=== PATIENT | female | born 1945 ===

== ENCOUNTER 2016-07-12 07:47 | Inpatient (IN) | payer OTHER ==
[~2016-07-12 07:47] MED LIST: ACETAMINOPHEN 325 MG TAB PO ONE; CEFAZOLIN 2 GM/DEXTR 100 ML IV ONE; CHLORHEXIDINE GLUC HIBICLENS 118 ML BTL TP ONE; DEXAMETHASONE 4 MG/ML VIAL IVP ONE; FAMOTIDINE 20 MG TAB PO ONE; ROPI/epiNEPH/KETOROLAC JOINT COCKTAIL IU ONE; SKIN ADHESIVE (DERMABOND) 1 EACH TP ONE; TRANEXAMIC ACID 3,000 MG in NS 50 ML IRR ONE; TRANEXAMIC ACID 3,000 MG/50 ML BAG IRR ONE
[2016-07-12] MEDS ORDERED: ACETAMINOPHEN 325 MG TAB ONE (08:21)
[2016-07-12] MEDS ORDERED: DEXAMETHASONE 4 MG/ML VIAL ONE (08:21)
[2016-07-12] MEDS ORDERED: FAMOTIDINE 20 MG TAB ONE (08:21)
[2016-07-12] MEDS ORDERED: LIDOCAINE 1% 5 ML SDV ONE (08:21)
[2016-07-12] MEDS ORDERED: LR 1,000 ML IV ONE (08:53)
[2016-07-12] MEDS ORDERED: LIDOCAINE 1% 5 ML SDV ID PRN (08:53)
[2016-07-12] MEDS ORDERED: MIDAZOLAM 2 MG/2 ML VIAL ONE (10:07)
[2016-07-12] MEDS ORDERED: PROPOFOL/EMULSION 500 MG/50 ML BOTTLE IV ONE (10:38)
[2016-07-12] MEDS ORDERED: TEMAZEPAM 15 MG CAP PO PRN (11:45)
[2016-07-12] MEDS ORDERED: ONDANSETRON DISINTEGRATING 4 MG TAB PO PRN (11:45)
[2016-07-12] MEDS ORDERED: BISACODYL 10 MG SUPP PR PRN (11:45)
[2016-07-12] MEDS ORDERED: ONDANSETRON 4 MG/2 ML VIAL IVP PRN (11:45)
[2016-07-12] MEDS ORDERED: POLYETHYLENE GLYCOL 3350 17 GM PKT PO PRN (11:45)
[2016-07-12] MEDS ORDERED: PHARMACY PAIN CONSULT 1 EA MISC PRN (11:45)
[2016-07-12] MEDS ORDERED: METOCLOPRAMIDE 10 MG/2 ML VIAL IVP PRN (11:45)
[2016-07-12] MEDS ORDERED: PROMETHAZINE HCL 25 MG SUPPR PR PRN (11:45)
[2016-07-12] MEDS ORDERED: LACTULOSE 20 GM/30 ML UDCUP PO PRN (11:45)
[2016-07-12] MEDS ORDERED: PROMETHAZINE HCL 25 MG/ML INJ IVP PRN (11:45)
[2016-07-12] MEDS ORDERED: DIPHENOXYLATE/ATROPINE LOMOTIL 1 TAB PO PRN (11:45)
[2016-07-12] MEDS ORDERED: diphenhydrAMINE 25 MG CAP PO PRN (11:45)
[2016-07-12] MEDS ORDERED: MAGNESIUM HYDROXIDE 30 ML UDCUP PO PRN (11:45)
--- NOTE | 2016-07-12 11:45 | POSTOPPROG ---
Post Op Note Date of Operation: 07/12/16 Surgeon: Michael Alcaraz Digital Asset Coordinator: gregg alcaraz Anesthesiologist: dr. zelaya Anesthesia: Spinal Pre-op Diagnosis: Right HIP OA Post-op Diagnosis: same Indication: right hip pain due to OA that failed conservative measures Procedure: R CHAMP ant approach Findings: severe hip OA Inf/Abcess present in the surg proc area at time of surgery?: No EBL: 100-500
[2016-07-12] MEDS ORDERED: LR 1,000 ML IV SCH (12:00)
[2016-07-12] MEDS: ACETAMINOPHEN 325 MG TAB PO SCH ×4 (12:42→23:38)
[2016-07-12] MEDS ORDERED: ceFAZolin 2 GM/DEXTROSE 100 ML IV SCH (14:00)
--- NOTE | 2016-07-12 15:02 | GOP ---
DATE OF OPERATION: 07/12/2016 SURGEON: Shree Barry MD FAST FOOD CREW LEAD: HERIBERTO Tripp. ANESTHESIA: Spinal. PREOPERATIVE DIAGNOSIS: Right hip osteoarthritis. POSTOPERATIVE DIAGNOSIS: Right hip osteoarthritis. PROCEDURE PERFORMED: Right total hip arthroplasty. FINDINGS: ESTIMATED BLOOD LOSS: 200 cc. IMPLANTS: Accolade II size 4 at 127. Acetabular component a 54 mm Tritanium. The liner is a Trident X3 36 mm. The head is a Biolox Delta 36 mm -2.5. INDICATIONS: The patient has progressively worsening arthritis of the hip which has failed medical management. The patient understands the treatment options including continued non-operative care and has selected surgical intervention. The patient has decided to undergo total hip arthroplasty via the direct anterior approach, understanding the risks of the procedure including , but not limited to, neurovascular injury, infection, persistent pain, component wear and loosening, deep venous thrombosis, pulmonary embolism, limb length inequality, hip instability (including dislocation), and intra-operative fractures. DESCRIPTION OF PROCEDURE: After proper identification of the patient including verification and marking the surgical site, the patient was brought to the operating room and placed in the supine position. All bony prominences were well padded. Anesthesia was induced without complication and intravenous prophylactic antibiotics were administered prior to skin incision. The operative leg was placed in the Trumpf Arch table extension and the well leg in a Yellofin leg rm. The patient was prepped and draped in the usual sterile fashion. The C-arm was draped for intra-operative fluoroscopy to check acetabular position, femoral component position including leg length and femoral offset. Attention was then drawn to surgical exposure of the hip. An incision was made with a #10 Bard Rodney blade starting 3 cm lateral and 3 cm distal to the anterior superior iliac spine measuring 8-10 cm and coursing distally toward the greater trochanter. The skin and subcutaneous tissues were divided sharply down to the fascia shavon. The fascia shavon was incised in line with the skin incision exposing the underlying tensor fascia shavon muscle. The muscle was bluntly elevated from the fascia and the first extracapsular Cobra retractor was placed laterally at the junction of the superior femoral neck and greater trochanter. The lateral femoral circumflex vessels were identified, cauterized , and divided with the AquamanCognios bipolar cautery. The deep investing fascia of the TFL was divided to allow proper mobilization of the muscle preventing damage during the retraction. The reflected head of the rectus femoris muscle was elevated off the anterior hip capsule and a medial Cobra retractor was placed just proximal to the lesser trochanter. The anterior capsulotomy was made sharply from the superolateral acetabulum to the saddle junction of the superior femoral neck and greater trochanter, then coursing inferomedial towards the lesser trochanter. The retractors were then placed in the intracapsular position for femoral neck osteotomy. Corresponding to pre-operative templating, the osteotomy was made with the oscillating saw carefully protecting the greater trochanter and soft tissues. The femoral head was removed from the acetabulum with a corkscrew and confirmed to be severely arthritic with exposed bone, deformity and osteophytes. Similar findings were confirmed in the acetabulum. The Arch table extension was then placed in 40 degrees external rotation. Attention was then drawn to the acetabular preparation. After placement of the anterior and posterior Cobra retractors outside the labrum and intracapsular, the circumferential labrum was removed sharply. The foveal contents were then removed and hemostasis obtained with cautery. The first reamer selected was sized using the removed femoral head. Reaming began with medialization and then commenced in 2 mm increments at 45 degrees of abduction and 15 degrees of anteversion using fluoroscopic navigation. Reaming ceased 1 mm less than the definitive acetabular component and corresponded to the pre-operative templating. The final acetabular component was inserted using fluoroscopy to achieve proper orientation yielding excellent purchase and stability in the acetabulum. The final acetabular liner was then placed and its seating confirmed. Attention was then turned to the femur. The Arch table extension was placed in extension and adduction, delivering the osteotomized femoral neck into the wound. A 2-pronged femoral elevator was placed at the calcar and another at the tip of the greater trochanter. The posterolateral capsule was released with cautery allowing mobilization of the femur lateral and anterior for preparation. The external rotators were visualized and preserved. A curette and rongeur were used to open the starting point for broaching. Serial broaching started with the #0 broach and ended with the broach that exhibited excellent fit in the proximal femur. A change in pitch during mallet strikes was accompanied by the inability to advance the broach any further. The trial reduction was performed and fluoroscopic navigation was utilized to check limb length. Adjustments were made to equalize limb length accordingly. After the final trials were accepted they were removed and the wound was copiously lavaged. The femoral component was seated to the same depth as the final broach and the femoral head was impacted onto the clean trunnion. The hip was then reduced for the final time and once more fluoroscopy was used to check that limb length equality was achieved. The wound was irrigated and closed in layers, the fascia shavon with 2-0 Quill, the subcutaneous tissue with 2-0 Quill, and the skin with Dermabond. Sterile dressings were applied. Final sharps and sponge counts were accurate. The patient was then transferred to a hospital bed and brought to the recovery room in stable condition. /[id number]/MODL MTDD
[2016-07-12] MEDS: ceFAZolin 2 GM in D5W 100 ML IV SCH ×2 (15:03→21:14)
[2016-07-12] MEDS: CYCLOBENZAPRINE 10 MG TAB PO PRN (15:07)
[2016-07-12] MEDS: oxyCODONE IR 5 MG TAB PO PRN ×3 (15:07→21:14)
[2016-07-12] MEDS: ASPIRIN 325 MG TAB PO SCH (19:46)
[2016-07-12] MEDS: SENNOSIDES/DOCUSATE SODIUM TAB PO SCH (19:47)
[2016-07-12] MEDS: FAMOTIDINE 20 MG TAB PO SCH (19:47)
[2016-07-13] MEDS: oxyCODONE IR 5 MG TAB PO PRN ×2 (04:12→08:27)
[2016-07-13] MEDS: ACETAMINOPHEN 325 MG TAB PO SCH (05:12)
[2016-07-13 05:33] LABS: HEMATOCRIT 33.5 % (38.0-47.0); HEMOGLOBIN 11.4 g/dL (12.6-16.3)
[2016-07-13 07:52] VITALS: BP 107/62; PULSE 65; RESP 14; TEMP 97.6; O2SAT 97
[2016-07-13] MEDS: ASPIRIN 325 MG TAB PO SCH (08:26)
[2016-07-13] MEDS: SENNOSIDES/DOCUSATE SODIUM TAB PO SCH (08:27)
[2016-07-13] MEDS: FAMOTIDINE 20 MG TAB PO SCH (08:27)
[2016-07-13] MEDS: CYCLOBENZAPRINE 10 MG TAB PO PRN (08:29)
== END 2016-07-13 10:58 | disposition home or self-care (01) | DRG 470 ==
LOC: F3N 07:47
PROVIDERS: ADMIT Orthopaedic Surgery; ATTEND Orthopaedic Surgery
PROC: 0SR904Z Replacement of Right Hip Joint with Ceramic on Polyethylene Synthetic Substitute, Open Approach (ICD-10-PCS; principal; 2016-07-12 10:15)
DX: M16.11 Unilateral primary osteoarthritis, right hip (principal)
CPT/HCPCS: 97110-GP; 97116-GP; 97161-GP; 97165-GO; 97530-GP; 97535-GO; G8978-GP-CJ; G8979-GP-CI; G8980-GP-CI; G8987-GO-CI; G8988-GO-CI; J0171; J0690; J1100; J1885; J2250; J2704; J2795

== ENCOUNTER 2017-10-31 07:38 | Inpatient (IN) | payer OTHER ==
[~2017-10-31 07:38] MED LIST changes: -ACETAMINOPHEN 325 MG TAB PO ONE; -CEFAZOLIN 2 GM/DEXTR 100 ML IV ONE; -CHLORHEXIDINE GLUC HIBICLENS 118 ML BTL TP ONE; -DEXAMETHASONE 4 MG/ML VIAL IVP ONE; -FAMOTIDINE 20 MG TAB PO ONE; -ROPI/epiNEPH/KETOROLAC JOINT COCKTAIL IU ONE; +ROPIVACAINE 0.2% 80 MG, EPINEPHrine 0.2 MG, KETOROLAC TROMETHAMINE 30 MG in SYRINGE 0 ML IU ONE; -SKIN ADHESIVE (DERMABOND) 1 EACH TP ONE; +TRANEXAMIC ACID 3,000 MG in NS (SYRINGE) 50 ML IRR ONE; -TRANEXAMIC ACID 3,000 MG in NS 50 ML IRR ONE
[2017-10-31] MEDS ORDERED: ACETAMINOPHEN 325 MG TAB PO ONE (08:03)
[2017-10-31] MEDS ORDERED: ceFAZolin 2 GM/DEXTROSE 100 ML IV ONE (08:03)
[2017-10-31] MEDS ORDERED: FAMOTIDINE 20 MG TAB PO ONE (08:03)
[2017-10-31] MEDS ORDERED: DEXAMETHASONE 4 MG/ML VIAL IVP ONE (08:03)
[2017-10-31] MEDS ORDERED: LR 1,000 ML IV ONE (08:06)
--- NOTE | 2017-10-31 08:08 | PDANEPAE ---
ANE History of Present Illness 72 year old female for left hip total arthroplasty. ANE Past Medical History - Cardiovascular History Hx Hypertension: No Hx Arrhythmias: No Hx Chest Pain: No Hx Coronary Artery / Peripheral Vascular Disease: No Hx CHF / Valvular Disease: No Hx Palpitations: No - Pulmonary History Hx COPD: No Hx Asthma/Reactive Airway Disease: No Hx Recent Upper Respiratory Infection: No Hx Oxygen in Use at Home: No Hx Sleep Apnea: No Sleep Apnea Screening Result - Last Documented: Negative - Neurologic History Hx Cerebrovascular Accident: No Hx Seizures: No Hx Dementia: No - Endocrine History Hx Diabetes: No Hypothyroid: No Hyperthyroid: No Obesity: no - Renal History Hx Renal Disorders: No - Liver History Hx Hepatic Disorders: No - Neurological & Psychiatric Hx Hx Neurological and Psychiatric Disorders: No - Cancer History Hx Cancer: No - Congenital Disorder History Hx Congenital Disorders: No - GI History Hx Gastrointestinal Disorders: No - Other Health History Other Health History: OSTEOARTHRITIS - Chronic Pain History Chronic Pain: Yes (LT HIP/LT KNEE) - Surgical History Prior Surgeries: RT TOTAL HIP 06/2016. LYUDMILA LASIK and radiokeratotomy. cone bx ANE Review of Systems Review of systems is: negative Review of Systems: - Exercise capacity Exercise capacity: >=4 METS METS (RN): 4 METS ANE Patient History - Allergies Allergies/Adverse Reactions: egg Allergy (Verified 07/13/16 07:21) oxycodone [From OxyContin] Allergy (Verified 10/11/17 18:43) HANGOVER/GI ISSUES peanut Allergy (Verified 07/13/16 07:20) - Home Medications Home medications: home medication list seen and reviewed Home Medications: Multivitamins [Multivitamin (*)] 1 each PO DAILY 09/21/17 [Last Taken Unknown] Vit C/Dl-E AC/Lut/Copper/Znox [Preservision Softgel] 1 each PO DAILY 09/21/17 [ Last Taken Unknown] - NPO status NPO Status: no food or drink >8 hours - Anes Hx Anes Hx: no prior problems - Smoking Hx Smoking Status: Never smoked Marijuana use: No - Alcohol Use Alcohol Use: Rarely - Family Anes Hx Family Anes Hx: neg - N/A ANE Labs/Vital Signs - Vital Signs Vital Signs: reviewed preoperatively; see RN documention for details Height: 167.64 cm Weight: 73.936 kg ANE Physical Exam - Airway Neck exam: FROM Mallampati Score: Class 2 Mouth exam: normal dental/mouth exam - Pulmonary Pulmonary: no respiratory distress - Cardiovascular Cardiovascular: regular rate and rhythym - ASA Status ASA Status: II ANE Anesthesia Plan Anesthesia Plan: GA w LMA (General anesthesia as "back-up plan" only.), MAC, spinal Total IV Anesthesia: No
[2017-10-31] MEDS ORDERED: MIDAZOLAM 2 MG/2 ML VIAL IVP ONE (10:08)
[2017-10-31] MEDS ORDERED: MIDAZOLAM 2 MG/2 ML VIAL ONE (10:09)
[2017-10-31] MEDS ORDERED: PROPOFOL/EMULSION 500 MG/50 ML BOTTLE IV ONE (10:17)
[2017-10-31] MEDS ORDERED: ONDANSETRON 4 MG/2 ML VIAL ONE (10:18)
[2017-10-31] MEDS ORDERED: DEXAMETHASONE 4 MG/ML VIAL ONE (10:18)
[2017-10-31] MEDS ORDERED: fentaNYL 100 MCG/2 ML INJ IVP PRN (11:01)
[2017-10-31] MEDS ORDERED: NALOXONE HCL 0.4 MG/ML INJ IVP PRN (11:01)
[2017-10-31] MEDS ORDERED: DIAZEPAM 5 MG/ML 1 ML SYR IVP PRN (11:01)
[2017-10-31] MEDS ORDERED: LR 500 ML IV PRN (11:01)
[2017-10-31] MEDS ORDERED: LABETALOL HCL 5 MG/ML 20 ML MDV IVP PRN (11:01)
[2017-10-31] MEDS ORDERED: HYDROmorphONE/DILAUDID 1 MG/ML INJ IVP PRN (11:01)
[2017-10-31] MEDS ORDERED: ONDANSETRON 4 MG/2 ML VIAL IVP PRN ×2 (11:01→11:44)
[2017-10-31] MEDS ORDERED: PHENYLEPHRINE HCL 100 MCG/ML SYR IVP PRN (11:01)
[2017-10-31] MEDS ORDERED: MAGNESIUM HYDROXIDE 30 ML UDCUP PO PRN (11:44)
[2017-10-31] MEDS ORDERED: LACTULOSE 20 GM/30 ML UDCUP PO PRN (11:44)
[2017-10-31] MEDS ORDERED: BISACODYL 10 MG SUPP PR PRN (11:44)
[2017-10-31] MEDS ORDERED: TEMAZEPAM 15 MG CAP PO PRN (11:44)
[2017-10-31] MEDS ORDERED: DIPHENOXYLATE/ATROPINE LOMOTIL 1 TAB PO PRN (11:44)
[2017-10-31] MEDS ORDERED: METOCLOPRAMIDE 10 MG/2 ML VIAL IVP PRN (11:44)
[2017-10-31] MEDS ORDERED: PROMETHAZINE HCL 25 MG/ML INJ IVP PRN (11:44)
[2017-10-31] MEDS ORDERED: diphenhydrAMINE 25 MG CAP PO PRN (11:44)
[2017-10-31] MEDS ORDERED: ONDANSETRON DISINTEGRATING 4 MG TAB PO PRN (11:44)
[2017-10-31] MEDS ORDERED: PROMETHAZINE HCL 25 MG SUPPR PR PRN (11:44)
[2017-10-31] MEDS ORDERED: CYCLOBENZAPRINE 10 MG TAB PO PRN (11:44)
[2017-10-31] MEDS ORDERED: POLYETHYLENE GLYCOL 3350 17 GM PKT PO PRN (11:44)
--- NOTE | 2017-10-31 11:44 | POSTOPPROG ---
Post Op Note Date of Operation: 10/31/17 Surgeon: Michael Alcaraz Cardroom Plastic Card Grader: gregg alcaraz Anesthesiologist: Dr. Fonseca Anesthesia: Spinal Pre-op Diagnosis: left hip OA Post-op Diagnosis: same Indication: left hip pain Procedure: L CHAMP ant approach Findings: severe hip OA Inf/Abcess present in the surg proc area at time of surgery?: No EBL: 100-500
[2017-10-31] MEDS ORDERED: LR 1,000 ML IV SCH (12:00)
[2017-10-31] MEDS: ACETAMINOPHEN 325 MG TAB PO SCH ×2 (13:06→18:03)
--- NOTE | 2017-10-31 14:17 | PDHPUP ---
History & Physical Update H&P update statement: This history and physical update is based on an assessment of the patient which was completed after admission or registration (within 24 hours), but prior to the surgery/procedure. H&P update: H&P reviewed & patient examined, no change in patient's condition since H&P completed
[2017-10-31] MEDS: traMADol 50 MG TAB PO PRN (16:40)
--- NOTE | 2017-10-31 16:53 | POSTANESTH ---
Post Anesthetic Evaluation Cardiovascular Status: Normal, Stable, Similar to Pre-Op Cond Respiratory Status: Normal, Stable, Similar to Pre-op Cond. Level of Consciousness/Mental Status: Can Participate in Eval, Alert and Oriented Pain Control: Adequate, Prn Tx Ordered Nausea/Vomiting Control: Adequate, Prn Tx Ordered Complications Possibly Related to Anesthesia: None Noted
[2017-10-31] MEDS: ceFAZolin 2 GM/DEXTROSE 100 ML IV SCH (18:04)
--- NOTE | 2017-10-31 20:39 | GOP ---
[f rep st] OPERATIVE REPORT DATE OF OPERATION: 10/31/2017 SURGEON: Shree Barry MD NEUROSURGEON: Shree Barry MD. SOLUTIONS DELIVERY CONSULTANT: HERIBERTO Tripp. ANESTHESIA: Spinal. PREOPERATIVE DIAGNOSIS: Left hip osteoarthritis. POSTOPERATIVE DIAGNOSIS: Left hip osteoarthritis. PROCEDURE PERFORMED: Left total hip arthroplasty with x-ray. FINDINGS: ESTIMATED BLOOD LOSS: 200 cc. INDICATIONS: The patient has progressively worsening arthritis of the hip which has failed medical m anagement. The patient understands the treatment options including continued non-operative care and has selected surgical intervention. The patient has decided to undergo total hip arthroplasty via th e direct anterior approach, understanding the risks of the procedure including, but not limited to, n eurovascular injury, infection, persistent pain, component wear and loosening, deep venous thrombosis , pulmonary embolism, limb length inequality, hip instability (including dislocation), and intra-oper ative fractures. DESCRIPTION OF PROCEDURE: After proper identification of the patient including verification and margie ing the surgical site, the patient was brought to the operating room and placed in the supine positio n. All bony prominences were well padded. Anesthesia was induced without complication and intraveno us prophylactic antibiotics were administered prior to skin incision. The operative leg was placed in the Trumpf Arch table extension and the well leg in a Yellofin leg ho lder. The patient was prepped and draped in the usual sterile fashion. The C-arm was draped for int ra-operative fluoroscopy to check acetabular position, femoral component position including leg lengt h and femoral offset. Attention was then drawn to surgical exposure of the hip. An incision was made with a #10 Bard Dickey r blade starting 3 cm lateral and 3 cm distal to the anterior superior iliac spine measuring 8-10 cm and coursing distally toward the greater trochanter. The skin and subcutaneous tissues were divided sharply down to the fascia shavon. The fascia shavon was incised in line with the skin incision exposing the underlying tensor fascia shavon muscle. The muscle was bluntly elevated from the fascia and the f irst extracapsular Cobra retractor was placed laterally at the junction of the superior femoral neck and greater trochanter. The lateral femoral circumflex vessels were identified, cauterized, and divi ded with the Aquamantys bipolar cautery. The deep investing fascia of the TFL was divided to allow p paulina mobilization of the muscle preventing damage during the retraction. The reflected head of the rectus femoris muscle was elevated off the anterior hip capsule and a medial Cobra retractor was plac ed just proximal to the lesser trochanter. The anterior capsulotomy was made sharply from the superolateral acetabulum to the saddle junction of the superior femoral neck and greater trochanter, then coursing inferomedial towards the lesser troc hanter. The retractors were then placed in the intracapsular position for femoral neck osteotomy. C orresponding to pre-operative templating, the osteotomy was made with the oscillating saw carefully p rotecting the greater trochanter and soft tissues. The femoral head was removed from the acetabulum with a corkscrew and confirmed to be severely arthritic with exposed bone, deformity and osteophytes. Similar findings were confirmed in the acetabulum. The Arch table extension was then placed in 40 degrees external rotation. Attention was then drawn to the acetabular preparation. After placement of the anterior and posterio r Cobra retractors outside the labrum and intracapsular, the circumferential labrum was removed sharp ly. The foveal contents were then removed and hemostasis obtained with cautery. The first reamer selected was sized using the removed femoral head. Reaming began with medialization and then commenced in 2 mm increments at 45 degrees of abduction and 15 degrees of anteversion using fluoroscopic navigation. Reaming ceased 1 mm less than the definitive acetabular component and abilio esponded to the pre-operative templating. The final acetabular component was inserted using fluorosc opy to achieve proper orientation yielding excellent purchase and stability in the acetabulum. The f inal acetabular liner was then placed and its seating confirmed. Attention was then turned to the femur. The Arch table extension was placed in extension and adducti on, delivering the osteotomized femoral neck into the wound. A 2-pronged femoral elevator was placed at the calcar and another at the tip of the greater trochanter. The posterolateral capsule was rele ased with cautery allowing mobilization of the femur lateral and anterior for preparation. The exter nal rotators were visualized and preserved. A curette and rongeur were used to open the starting poi nt for broaching. Serial broaching started with the #0 broach and ended with the broach that exhibit ed excellent fit in the proximal femur. A change in pitch during mallet strikes was accompanied by t he inability to advance the broach any further. The trial reduction was performed and fluoroscopic n avigation was utilized to check limb length. Adjustments were made to equalize limb length according ly. After the final trials were accepted they were removed and the wound was copiously lavaged. The femo ral component was seated to the same depth as the final broach and the femoral head was impacted onto the clean trunnion. The hip was then reduced for the final time and once more fluoroscopy was used to check that limb length equality was achieved. The wound was irrigated and closed in layers, the fascia shavon with 2-0 Quill, the subcutaneous tissue with 2-0 Quill, and the skin with Dermabond. Sterile dressings were applied. Final sharps and spon ge counts were accurate. The patient was then transferred to a hospital bed and [facility] condition. IMPLANTS: Accolade II size 4 at 127. Acetabular component a Trident II, 54 mm. Liner is a Trident X3 36 mm head with Biolox Delta 36 mm, -2.5. /[id number]/MODL
[2017-10-31] MEDS: SENNOSIDES/DOCUSATE SODIUM TAB PO SCH (20:49)
[2017-10-31] MEDS: ASPIRIN 81 MG CHEWABLE TAB PO SCH (20:50)
[2017-10-31] MEDS: FAMOTIDINE 20 MG TAB PO SCH (20:50)
[2017-11-01] MEDS: ACETAMINOPHEN 325 MG TAB PO SCH ×2 (00:04→05:53)
[2017-11-01] MEDS: ceFAZolin 2 GM/DEXTROSE 100 ML IV SCH (02:35)
[2017-11-01] MEDS: traMADol 50 MG TAB PO PRN ×2 (02:36→10:07)
[2017-11-01 07:29] VITALS: BP 92/61
[2017-11-01] MEDS: ASPIRIN 81 MG CHEWABLE TAB PO SCH (07:42)
[2017-11-01] MEDS: SENNOSIDES/DOCUSATE SODIUM TAB PO SCH (07:43)
[2017-11-01] MEDS: FAMOTIDINE 20 MG TAB PO SCH (07:43)
--- NOTE | 2017-11-01 08:51 | SOAPPROG ---
SOAP Progress Note Assessment/Plan: Assessment: Patient is doing well POD 1 s/p L CHAMP Pain management: pain is well controlled on oral pain meds. VTE ppx: recommend aspirin 81 mg BID for 4 weeks, cont CLARA and SCDs Anemia: level is expected initially postop. Asymptomatic. Continue to monitor D/c planning: d/c to home today pending release from PT Plan: 11/01/17 08:50 Subjective: mild pain, denies SOB, chest pain and N/V. Objective: Vital Signs Temp Pulse Resp BP Pulse Ox 36.5 C 62 16 92/61 L 94 11/01/17 07:24 11/01/17 07:24 11/01/17 07:24 11/01/17 07:24 11/01/17 07:24 Laboratory Results 11/01/17 05:01 10/31/17 11/01/17 11/02/17 05:59 05:59 05:59 Intake Total 4015 Output Total 2150 Balance 1865 LLE; incision dressing is clean and dry, NVI, +pf/df ICD10 Worksheet Patient Problems: Problems Problem Status Onset Primary localized osteoarthritis of left hip Acute Primary localized osteoarthritis of right hip Acute
--- NOTE | 2017-11-01 14:02 | PDMN ---
Medical Necessity Medical necessity: IP surgery per [facility] cpt 87926 LTHA
--- NOTE | 2017-11-01 15:40 | GDS ---
[f rep st] DISCHARGE SUMMARY ADMISSION DIAGNOSIS: Left hip osteoarthritis. DISCHARGE DIAGNOSIS: Left hip osteoarthritis. PROCEDURE: Left total hip arthroplasty. VTE PROPHYLAXIS: Recommend aspirin 81 mg twice daily for 4 weeks. BRIEF DESCRIPTION OF HOSPITAL STAY: Patient was admitted for an elective joint arthroplasty. The pa phuongnt tolerated the procedure well and has passed physical therapy. The patient was given appropriat e antibiotic prophylaxis and venous thromboembolism prophylaxis. The patient's pain was well control led on oral pain medication, patient was holding down food, and had urinated. Decision was made to d ischarge the patient. The patient was given post-operative prescriptions pre-operatively. PLAN: Follow up as scheduled in Dr. Barry's office November 22 at 1:30. /[id number]/MODL
== END 2017-11-01 10:14 | disposition home or self-care (01) | DRG 470 ==
LOC: F3N 07:38
PROVIDERS: ADMIT Orthopaedic Surgery; ATTEND Orthopaedic Surgery
PROC: 0SRB04A Replacement of Left Hip Joint with Ceramic on Polyethylene Synthetic Substitute, Uncemented, Open Approach (ICD-10-PCS; principal; 2017-10-31 10:15)
DX: M16.12 Unilateral primary osteoarthritis, left hip (principal)
CPT/HCPCS: 97110-GP; 97116-GP; 97161-GP; G8978-GP-CI; G8978-GP-CK; G8979-GP-CI; G8980-GP-CI; J0171; J0690; J1100; J1885; J2250; J2405; J2704; J2795